=== PATIENT | male | born 1965 | race Caucasian/White ===

== ENCOUNTER 2016-11-07 17:18 | Emergency (ER) | payer OTHER ==
--- NOTE | ~2016-11-07 | US115 ---
[facility] A Service of [facility] RADIOLOGY TEXT RESULTS PATIENT: JOSE ALBERTO CLINTON LOCATION: [facility] : [birth year] UNIT #: [id number] AGE: [address]: Griffin Purcell MD SEX: M ORDER DR: [id number] [facility] [address] [place], [place] [address] [id number] MR#: [id number] Acc #: [id number] NAME: JOSE ALBERTO CLINTON : 1965 SEX: M STUDY DATE/TIME: 11/07/2016 17:52 UNIT: CARYL ROOM: STUDY DESCRIPTION: US Scrotum and Contents Attending Physician: Griffin Purcell M.D. Ordering Physician: Griffin Purcell M.D. Primary Care Physician: Primary Care Physician No MEDICAL IMAGING REPORT This report is preliminary unless electronic signature is present EXAM Scrotal ultrasound COMPARISON None INDICATIONS 51-year-old male with right testicular pain for 2 weeks. No known trauma. FINDINGS Right testicle measures 2.5 cm x 3.1 cm x 1.7 cm. Arterial and venous flow are present in the right testicle. The right epididymis is normal in appearance with normal internal color flow. Left testicle measures 2.8 cm x 3.5 cm x 1.7 cm. There are small bilateral simple-appearing hydroceles. Normal appearance of the mediastinum testis on the left. There is arterial and venous flow within the left testicle. No testicular lesions are seen. Left epididymis appears normal, with normal internal color flow. There is symmetric color flow to both testicles and epididymides. Bilateral testicular flow does appear somewhat prominent but appears symmetric. IMPRESSION 1. No focal testicular lesions. There are small, bilateral simple-appearing hydroceles. The epididymides are normal. 2. There appears to be mild symmetric hyperemia to both testicles, but flow in the right testicle appears mildly elevated as compared to left and this could represent a subtle orchitis. Clinical correlation recommended. Dictated by... Ivan Magallon M.D. [facility] A Service of [facility] RADIOLOGY TEXT RESULTS PATIENT: JOSE ALBERTO CLINTON LOCATION: [facility] : [birth year] UNIT #: [id number] AGE: [address]: Griffin Purcell MD SEX: M ORDER DR: THIS IS AN ELECTRONICALLY VERIFIED REPORT Ivan Magallon M.D. at 11/11/2016 8:49 PM GEORGE/nilesh TD: 11/07/2016 21:08 JOB #: [id number] MEDICAL IMAGING REPORT Page 1 of 1 COPY
[2016-11-07 17:40] LABS: URINE SOURCE CLEAN CATCH
[2016-11-07 17:47] LABS: BASOPHIL% 0.4 % (0-2.5); EOSINOPHIL# 0.1 X10e3 (0-0.7); EOSINOPHIL% 0.7 % (0.0-7.0); HEMATOCRIT 45.1 % (38.0-50.0); HEMOGLOBIN 15.4 gm/dL (13.0-16.0); LYMPHOCYTE# 1.8 X10e3 (1.0-3.5); LYMPHOCYTE% 22.4 % (17.0-45.0); MEAN CORPUSCULAR HEMOGLOBIN 31.4 PG (28-34); MEAN CORPUSCULAR HGB CONC 34.1 g/dL (30-36); MEAN PLATELET VOLUME 8.8 FL (6.5-11.5); MONOCYTE# 0.5 X10e3 (0-1.0); MONOCYTE% 6.6 % (3.0-12.0); NEUTROPHIL# 5.5 X10e3 (1.5-7.1); NEUTROPHIL% 69.9 % (40-75); PLATELET COUNT 231 X10e3 (140-420); RED CELL DISTRIBUTION WIDTH 13.3 % (11.0-15.5); WHITE BLOOD COUNT 7.9 X10e3 (4.0-10.5)
[2016-11-07 17:49] LABS: DIFF IND NO
[2016-11-07 18:02] LABS: BUN/CREATININE RATIO 8.88; CALCIUM SERUM 9.1 mg/dL (8.4-10.2); CREATININE SERUM 0.9 mg/dL (0.6-1.4); GLOM FILT RATE Estimated 99.9 mL/min (>60)
[2016-11-07 18:10] LABS: URINE APPEARANCE CLEAR; URINE BILIRUBIN NEG (NEG); URINE BLOOD NEG (NEG); URINE COLOR YELLOW; URINE GLUCOSE NEG (NEG); URINE KETONE NEG (NEG); URINE LEUKOCYTE ESTERASE TRACE (NEG); URINE NITRATE NEG (NEG); URINE PROTEIN NEG (NEG); URINE SPECIFIC GRAVITY 1.012 (1.003-1.035); URINE UROBILINOGEN 0.2 MG/DL (NEG)
[2016-11-07 18:13] LABS: URBCS1 AUWI 0-2 /[HPF] (0-2); URINE BACTERIA AUWI NEG (NEGATIVE); URINE SQUAMOUS EPITHELIAL CELL NONE SEEN /[HPF]
[2016-11-07 18:14] LABS: CULTURE INDICATED? YES
[2016-11-10 15:36] LABS: CHLAMYDIA TRACH Not Detected (Not Detected); N GONOR Not Detected (Not Detected)
== END 2016-11-07 19:03 | disposition home or self-care (01) ==
LOC: CED 17:18
PROVIDERS: Emergency Medicine
DX: N45.3 Epididymo-orchitis (principal); F17.210 Nicotine dependence, cigarettes, uncomplicated
CPT/HCPCS: 36415; 76870; 80048; 81003; 85025; 87086; 87491; 87591; 93976; 96372; 99284; J0696